=== PATIENT | male | born 1970 | race Caucasian/White ===

== ENCOUNTER 2018-01-27 00:13 | Emergency (ER) | payer MEDICAID ==
--- NOTE | 2018-01-27 01:06 | ED Physician Chart ---
ED Chief Complaint/HPI - Patient Information Date Seen:: 01/27/18 Time Seen:: 01:05 Chief Complaint:: SWOLLEN TESTICLE NO TRAUMJ History of Present Illness:: SWOLLEN TESTICLE Allergies:: Allergies Allergy/AdvReac Type Severity Reaction Status Date / Time No Known Allergies Allergy Verified 01/27/18 00:58 Vitals:: Vital Signs - 8 hr 01/27/18 00:40 Temp 97.3 F HR 108 RR 19 BP 132/82 O2 Sat % 96 Historian:: Patient ED Review of Systems - Review of Systems General/Constitutional: No fever, No chills, No weight loss, No weakness, No diaphoresis, No edema, No loss of appetite Skin: No skin lesions, No rash, No bruising Head: No headache, No light-headedness Eyes: No loss of vision, No pain, No diplopia ENT: No earache, No nasal drainage, No sore throat, No tinnitus Neck: No neck pain, No swelling, No thyromegaly, No stiffness, No mass noted Cardio Vascular: No chest pain, No palpitations, No PND, No orthopnea, No edema Pulmonary: No SOB, No cough, No sputum, No wheezing GI: No nausea, No vomiting, No diarrhea, No pain, No melena, No hematochezia, No constipation, No hematemesis G/U: No dysuria, No frequency, No hematuria Musculoskeletal: No bone or joint pain, No back pain, No muscle pain Endocrine: No polyuria, No polydipsia Psychiatric: No prior psych history, No depression, No anxiety, No suicidal ideation Hematopoietic: No bruising, No lymphadenopathy Allergic/Immuno: No urticaria, No angioedema Neurological: No syncope, No focal symptoms, No weakness, No paresthesia, No headache, No seizure, No dizziness, No confusion, No vertigo ED Past Medical History - Past Medical History Past Medical History: No significant medical hx ED Physical Exam - Physical Examination General/Constitutional: Awake, Well-developed, well-nourished, Alert, No distress, GCS 15, Non-toxic appearing, Ambulatory Head: Atraumatic Eyes: Lids, conjuctiva normal, PERRL, EOMI Skin: Nl inspection, No rash, No skin lesions, No ecchymosis, Well hydrated, No lymphadenopathy ENMT: External ears, nose nl, Nasal exam nl, Lips, teeth, gums nl Neck: Nontender, Full ROM w/o pain, No JVD, No nuchal rigidity, No bruit, No mass, No stridor Respiratory: Nl effort/Exclusion, Clear to Auscultation, No Wheeze/Rhonchi/Rales Cardio Vascular: RRR, No murmur, gallop, rubs, NL S1 S2 GI: No tenderness/rebounding/guarding, No organomegaly, No hernia, Normal BS's, Nondistended, No mass/bruits, No McBurney tenderness : No CVA tenderness Other comments:: SWOLLEN RT TESTICLE Extremities: No tenderness or effusion, Full ROM, normal strength in all extremities, No edema, Normal digits & nails Neuro/Psych: Alert/oriented, DTR's symmetric, Normal sensory exam, Normal motor strength, Judgement/insight normal, Mood normal, Normal gait, No focal deficits Misc: Normal back, No paraspinal tenderness ED Assessment - Assessment General Assessment: SWOLLEN RT TESTICLE ED Septic Shock - . Is Septic Shock (SBP<90, OR Lactate>4 mmol\L) present?: No - <6hrs of presentation: Vital Signs: Vital Signs - 8 hr /05/08 00:40 Temp 97.3 F HR 108 RR 19 BP 132/82 O2 Sat % 96 ED Reassessment (Disposition) - Reassessment Reassessment:: epididomytitis and orchitis pt refused admission pt will f/u with his urologists Reassessment Condition:: Improved - Diagnosis Diagnosis:: SWOLLEN RT TESTICLE HYDROCELE NO TORSION - Patient Disposition Discharge/Transfer:: Against Medical Advice (rx doxy bactrim)
[2018-01-27] MEDS ORDERED: Morphine Sulfate 4 mg/mL 1mL Syr IV STA (01:19)
[2018-01-27 01:44] LABS: % BASOPHILS 0.6 % (0.0-2.0); % EOSINOPHILS 3.4 % (0.0-5.0); % LYMPHOCYTES 13.7 % (20.0-50.0); % MONOCYTES 7.9 % (2.0-10.0); % NEUTROPHILS 74.4 % (40.0-80.0); BASOPHILE ABSOLUTE 0.1 Th/cumm (0-0.2); EOSINOPHILE ABSOLUTE 0.3 Th/cmm (0.1-0.4); HEMATOCRIT 41.6 % (41.0-60); HEMOGLOBIN 13.8 gm/dL (12-16); LYMPHOCYTE ABSOLUTE 1.2 Th/cmm (1.5-3.0); MEAN CELL VOLUME 86.1 fl (80-99); MEAN CORPUSCULAR HEMOGLOBIN 28.6 pg (26.0-30.0); MEAN CORPUSCULAR HGB CONC 33.3 pg (28.0-36.0); MEAN PLATELET VOLUME 7.2 fl; MONOCYTE ABSOLUTE 0.7 Th/cmm (0.3-1.0); NEUTROPHILE ABSOLUTE 6.7 Th/cmm (1.8-8.0); PLATELET COUNT 251 Th/cmm (150-400); RED BLOOD COUNT 4.83 Mil/cmm (4.30-5.70); RED CELL DISTRIBUTION WIDTH 13.1 % (11.5-20.0)
[2018-01-27 01:49] LABS: INR 0.92 (0.5-1.4); PROTHROMBIN TIME (TEST) 9.6 SECONDS (9.5-11.5)
[2018-01-27 01:53] LABS: ALBUMIN 3.6 gm/dL (4.2-5.5); ALKALINE PHOSPHATASE 80 U/L (34-104); ANION GAP 10.4 (7.0-16.0); BILIRUBIN,TOTAL 0.4 mg/dL (0.3-1.0); BUN - UREA NITROGEN 18 mg/dL (7-25); CALCIUM SERUM 8.8 mg/dL (8.6-10.3); CARBON DIOXIDE 24.4 mEq/L (21.0-31.0); CHLORIDE 99 mEq/L (98-107); CREATININE - SERUM 0.9 mg/dL (0.7-1.3); GFR AFRICAN-AMERICAN > 60.0 ml/min (>90); GFR NON AFRICAN-AMERICAN > 60.0 ml/min; GLUCOSE 144 mg/dL (70-105); POTASSIUM SERUM 3.8 mEq/L (3.5-5.1); SGOT 15 U/L (13-39); SGPT/ALT 17 U/L (7-52); SODIUM SERUM 130 mEq/L (136-145); TOTAL PROTEIN,SERUM 7.4 gm/dL (6.0-8.3)
[2018-01-27 02:32] LABS: URINE MICROSCOPIC INDICATED? YES; URINE SOURCE CLEAN C
[2018-01-27 02:34] LABS: URINE BILIRUBIN NEGATIVE (NEGATIVE); URINE BLOOD SMALL (NEGATIVE); URINE GLUCOSE (UA) NEGATIVE (NEGATIVE); URINE KETONE NEGATIVE (NEGATIVE); URINE LEUKOCYTE ESTERASE TRACE (NEGATIVE); URINE NITRATE NEGATIVE (NEGATIVE); URINE PROTEIN TRACE mg/dL (NEGATIVE); URINE UROBILINOGEN 0.2 E.U./dL (0.2 - 1.0)
[2018-01-27 02:48] LABS: AMPHETAMINE URINE POSITIVE (NEGATIVE); BARBITURATES URINE NEGATIVE (NEGATIVE); BENZODIAZEPINES QUAL URINE NEGATIVE (NEGATIVE); CANNABINOID THC POSITIVE (NEGATIVE); COCAINE METABOLITE QUAL URINE NEGATIVE (NEGATIVE); METHADONE URINE NEGATIVE (NEGATIVE); METHAMPHETAMINES QUAL URINE NEGATIVE (NEGATIVE); OPIATES (MORPHINE) QUAL. URINE NEGATIVE (NEGATIVE); PHENCYCLIDINE (PCP) URINE NEGATIVE (NEGATIVE); TRICYCLICS (TCA) QUAL. URINE NEGATIVE (NEGATIVE)
[2018-01-27 02:49] LABS: URINE CLARITY HAZY (CLEAR); URINE COLOR YELLOW
[2018-01-27 02:52] LABS: URINE BACTERIA OCCASIONAL /hpf (NONE SEEN); URINE EPITHELIAL CELLS OCCASIONAL /lpf (FEW)
--- NOTE | 2018-01-27 09:43 | Diagnostic Imaging Report ---
Ultrasound scrotum HISTORY: Right testicular pain for 3 to 4 days, right testicular palpable abnormality COMPARISON: None Technique/procedure: Sonography of the scrotum and contents was performed in multiple planes. FINDINGS: The right testicle measures 3.6 x 2.3 x 73.5 centers demonstrates a mildly heterogeneous echotexture. No discrete focal lesions. Increased Vascular flow to right testicle is noted. The right epididymal head measures 2.4 cm. A complex septated hydrocele is noted on the right side. The left testicle measures 2.9 x 3.0 x 3.7 cm demonstrates a mildly heterogeneous echotexture. No evidence of focal lesions. The left epididymal head measures 1.2 cm. Left moderate size hydrocele is noted with debris. Vascular flow to left testicle is noted. IMPRESSION: Complex septated right hydrocele. There is also increased vascular flow to right testicle. Findings are likely due to infectious/inflammatory process. Mild increased size of the right epididymis is also noted which is likely due to infectious/inflammatory process. Clinical correlation follow up recommended. Additional moderate sized left hydrocele with debris which is probably also due to infectious/inflammatory process.
== END 2018-01-27 02:55 | disposition left against medical advice (07) ==
LOC: ER 00:13
DX: N43.3 Hydrocele, unspecified (principal)
CPT/HCPCS: 36415-UA; 76870-TC; 80053-TC; 80307; 81001-TC; 85025-TC; 85610-TC; 87086-90; Z7502